=== PATIENT | female | born 1955 | race Caucasian/White ===

== ENCOUNTER 2017-12-29 12:29 | Inpatient (IN) | payer MEDICARE, MEDICAID ==
[~2017-12-29] VITALS: Ht 157.5 cm; Wt 78.0 kg
[~2017-12-29 12:29] MED LIST: CYCL-1 PO; IBUP-1985 PO; KEP500T PO; MECL-111 PO; PER10325T PO
[2017-12-29] MEDS ORDERED: diltiazem 5mg/ml 5ml inj. IV ONE (12:35)
[2017-12-29] MEDS ORDERED: nitroGLYCERIN 1gm ointment UD TP ONE (12:35)
[2017-12-29] MEDS ORDERED: verapamil 2.5 mg/ml inj IV ONE (12:45)
[2017-12-29] MEDS ORDERED: diltiazem 30mg tablet PO ONE ×2 (12:45→13:20)
[2017-12-29 13:04] LABS: BASOPHILS % (AUTO) 0.2 % (0-1); EOSINOPHILS # (AUTO) 0.1 X10'3 (0-0.9); EOSINOPHILS % (AUTO) 1.2 % (0-6); HEMATOCRIT 49.1 % (35.0-45.0); HEMOGLOBIN 16.7 g/dl (12.0-16.0); LYMPHOCYTES # (AUTO) 1.4 X10'3 (1.1-4.8); LYMPHOCYTES % (AUTO) 16.8 % (21-51); MEAN CORPUSCULAR HEMOGLOBIN 33.7 PG (27.0-31.0); MEAN CORPUSCULAR HGB CONC 33.9 % (33.0-36.5); MEAN CORPUSCULAR VOLUME 99.3 FL (78-98); MEAN PLATELET VOLUME 10.1 FL (7.4-10.4); MONOCYTES # (AUTO) 0.4 X10'3 (0-0.9); MONOCYTES % (AUTO) 4.7 % (2-12); NEUTROPHILS # (AUTO) 6.6 X10'3 (1.8-7.7); NEUTROPHILS % (AUTO) 77.1 % (42-75); PLATELET COUNT 172 X10'3 (140-440); RED BLOOD COUNT 4.95 X10'6 (4.20-5.60); WHITE BLOOD COUNT 8.6 X10'3 (4.5-11.0)
[2017-12-29 13:14] LABS: PARTIAL THROMBOPLASTIN TIME 30 SECONDS (22-32); PROTHROMBIN TIME 10.6 SECONDS (9.0-12.0)
[2017-12-29] MEDS ORDERED: digoxin 250mcg/ml 2ml ampule IV ONE (13:20)
[2017-12-29] MEDS ORDERED: normal saline 1000ML IV soln IVB ONE (13:20)
[2017-12-29 13:25] LABS: ALANINE AMINOTRANSFERASE 19 U/L (12-78); ALBUMIN 3.7 G/DL (3.4-5.0); ALBUMIN/GLOBULIN RATIO 1.1 (1.1-1.5); ALKALINE PHOSPHATASE 84 IU/L (46-116); ANION GAP 13 (8-16); ASPARTATE AMINO TRANSFERASE 15 U/L (10-37); BILIRUBIN,TOTAL 0.6 MG/DL (0.1-1.0); BLOOD UREA NITROGEN 16 MG/DL (7-18); BUN/CREATININE RATIO 14.5 (6.6-38.0); CALCIUM 9.5 MG/DL (8.5-10.1); CHLORIDE 101 MMOL/L (99-107); GLUCOSE 101 MG/DL (70-104); MAGNESIUM 1.7 MG/DL (1.5-2.4); POTASSIUM 4.3 MMOL/L (3.5-5.1); SODIUM 140 MMOL/L (135-145); TOTAL CARBON DIOXIDE 25.8 MMOL/L (24-32); TOTAL PROTEIN 7.1 G/DL (6.4-8.2); eGFR 50 ML/MIN
[2017-12-29] MEDS ORDERED: enoxaparin 100mg/ml syringe SUBCUT ONE (13:40)
[2017-12-29] MEDS ORDERED: GABA300C PO (13:49)
[2017-12-29] MEDS ORDERED: ERGO500014 PO (13:50)
[2017-12-29] MEDS ORDERED: amiodarone 150mg/dext, iso-os 100 ML IV ONE (13:50)
[2017-12-29] MEDS ORDERED: amiodarone/D5 450MG/250ML BAG 250 ML IV ONE (13:50)
[2017-12-29] MEDS ORDERED: amiodarone/D5 360MG/200ML BAG 250 ML IV SCH (14:00)
[2017-12-29] MEDS ORDERED: magnesium 2GM in 50ml NS 50 ML IV PRN (14:30)
[2017-12-29] MEDS ORDERED: magnesium hydroxide 30ml (MOM) UD suspension PO PRN (14:30)
[2017-12-29] MEDS ORDERED: magnesium Cl slow-release 64mg tablet PO PRN (14:30)
[2017-12-29] MEDS ORDERED: potassium Cl 20 mEq SR tablet PO PRN ×2 (14:30)
[2017-12-29] MEDS ORDERED: acetaminophen 325mg tablet PO PRN ×2 (14:30)
[2017-12-29] MEDS ORDERED: magnesium 4gm in 100ml NS 100 ML IV PRN (14:30)
[2017-12-29] MEDS ORDERED: HYDROcodone/acetaminophen 5mg/325mg tablet PO PRN (14:30)
[2017-12-29] MEDS ORDERED: albuterol 2.5 MG/3 ML nebule NEB PRN (14:30)
[2017-12-29] MEDS ORDERED: HYDROcodone/acetaminophen 10/325mg tab PO PRN (14:30)
[2017-12-29] MEDS ORDERED: mag hydrox/Alum hydrox/simeth 30ml oral suspension PO PRN (14:30)
[2017-12-29] MEDS ORDERED: ondansetron/PF 4mg/2ml inj IV PRN (14:30)
[2017-12-29] MEDS ORDERED: potassium Cl 40MEQ/NS 500ml 500 ML IV PRN ×2 (14:30)
[2017-12-29] MEDS ORDERED: regadenoson 0.4mg/5ml syringe IV PRN (14:45)
[2017-12-29] MEDS ORDERED: aminophylline 250mg/10ml inj. IV PRN (14:45)
[2017-12-29] MEDS ORDERED: nitroGLYCERIN 0.4mg SUBLingual tab SL PRN (14:45)
[2017-12-29] MEDS ORDERED: metoprolol tartrate 1mg/ml inj IV PRN (14:45)
[2017-12-29] MEDS: normal saline 1000ml 1,000 ML IV SCH (15:02)
[2017-12-29 19:35] VITALS: BP 139/61
[2017-12-29] MEDS: diltiazem 30mg tablet PO SCH (20:00)
[2017-12-29] MEDS: levetiracetam 250mg tablet PO SCH (20:46)
[2017-12-29] MEDS: gabapentin 300mg capsule PO SCH (20:46)
[2017-12-29] MEDS: heparin, porcine 5000 units/ml vial SQ SCH (20:47)
[2017-12-29] MEDS ORDERED: temazepam 15mg capsule PO PRN (21:00)
[2017-12-29 23:00] VITALS: BP 117/55
[2017-12-30 02:12] VITALS: BP 102/46
[2017-12-30 04:10] VITALS: BP 102/46
[2017-12-30] MEDS: normal saline 1000ml 1,000 ML IV SCH (04:29)
[2017-12-30] MEDS ORDERED: pantoprazole 40mg Tablet.DR PO SCH (07:30)
[2017-12-30] MEDS: diltiazem 30mg tablet PO SCH (07:45)
[2017-12-30] MEDS: gabapentin 300mg capsule PO SCH (07:50)
[2017-12-30] MEDS: levetiracetam 250mg tablet PO SCH (07:51)
[2017-12-30] MEDS: heparin, porcine 5000 units/ml vial SQ SCH (07:53)
[2017-12-30] MEDS ORDERED: K and/or MAG REPLACEMENT MC SCH (08:00)
== END 2017-12-30 11:54 | disposition left against medical advice (07) | DRG 311 ==
LOC: ER 12:30 → ED HOLD 13:46 → EDBEDREQ 18:24 → PCU 3S 19:26
PROVIDERS: ADMIT Internal Medicine; ATTEND Internal Medicine
DX: I24.9 Acute ischemic heart disease, unspecified (principal); G62.9 Polyneuropathy, unspecified; I48.91 Unspecified atrial fibrillation; F32.9 Major depressive disorder, single episode, unspecified; F41.9 Anxiety disorder, unspecified; M54.9 Dorsalgia, unspecified; G89.29 Other chronic pain; J44.9 Chronic obstructive pulmonary disease, unspecified; N28.9 Disorder of kidney and ureter, unspecified; Z53.21 Procedure and treatment not carried out due to patient leaving prior to being seen by health care provider; Z88.0 Allergy status to penicillin; Z91.010 Allergy to peanuts; Z79.899 Other long term (current) drug therapy; Z85.820 Personal history of malignant melanoma of skin; Z86.73 Personal history of transient ischemic attack (TIA), and cerebral infarction without residual deficits
CPT/HCPCS: 36415; 71045; 80053; 80177; 83735; 83880; 84484; 85025; 85610; 85730; 87070; 93005; 93306; 94760; 96361; 96374; 96375; 99291; J0280; J0282; J1160; J1644; J1650; J3490; J7030

== ENCOUNTER 2020-11-13 14:14 | Emergency (ER) | payer MEDICARE, MEDICAID ==
[~2020-11-13] VITALS: Ht 152.4 cm; Wt 53.3 kg
[~2020-11-13 14:14] MED LIST changes: -CYCL-1 PO; +ERGO500014 PO; +GABA300C PO; -MECL-111 PO
[2020-11-13 14:41] VITALS: BP 129/73
--- NOTE | 2020-11-13 15:02 | NUR ---
trying to move patient from room 13 to 15 to accommodate a 5150, pt. stated, "I'm just leaving". Attempted to have pt stay, pt. refused
== END 2020-11-13 15:04 | disposition left against medical advice (07) ==
LOC: ER 14:15
DX: M79.622 Pain in left upper arm (principal); Z53.21 Procedure and treatment not carried out due to patient leaving prior to being seen by health care provider